=== PATIENT | male | born 1990 | race Caucasian/White ===

== ENCOUNTER → 2021-04-25 12:49 | Outpatient (BNVA) | payer BC, MEDICAID, SELFPAY | PROVIDERS: Family Provider Nurse Practitioner Family; PCP Nurse Practitioner Family; Referring Provider Family Medicine; Visit Provider Specialist | DX: R20.2 Paresthesia of skin (principal); R20.0 Anesthesia of skin; F17.200 Nicotine dependence, unspecified, uncomplicated | CPT/HCPCS: 95908 ==